=== PATIENT | male | born 1975 | race Caucasian/White ===

== ENCOUNTER 2018-06-22 08:31 | Emergency (ER) | payer OTHER, BC ==
[~2018-06-22] VITALS: Ht 182.9 cm; Wt 76.4 kg
[2018-06-22 08:33] VITALS: Ht 182.9 cm; Wt 76.4 kg
[2018-06-22] MEDS ORDERED: NORCO 7.5/325 T1 TA1 PO (09:15)
[2018-06-22 10:43] VITALS: BP 122/78
== END 2018-06-22 10:45 | disposition home or self-care (01) ==
LOC: D.ER 08:31
DX: S99.921A Unspecified injury of right foot, initial encounter (principal); V23.4XXA Motorcycle driver injured in collision with car, pick-up truck or van in traffic accident, initial encounter; Y93.89 Activity, other specified; Y92.410 Unspecified street and highway as the place of occurrence of the external cause

== ENCOUNTER 2021-02-26 06:26 | Day surgery (SDC) | payer BC ==
[~2021-02-26] VITALS: Ht 182.9 cm; Wt 79.4 kg
[~2021-02-26 06:26] MED LIST: NORCO 7.5/325 T1 TA1 PO
[2021-02-26 08:20] VITALS: BP 103/67; Ht 182.9 cm; Wt 79.4 kg
--- NOTE | 2021-02-26 09:04 | HP ---
PATIENT: SIXTO CAMPOS MEDICAL RECORD: [id number] ACCOUNT: [id number] LOCATION:[facility] : 77 ADMISSION DATE: 02/26/21 PCP: MARK MANRIQUE MD HISTORY AND PHYSICAL EXAMINATION PREOPERATIVE HISTORY AND PHYSICAL HISTORY OF PRESENT ILLNESS: Mr. Campos is 45, he has been having trouble with severe nasal obstruction refractory to medical management. He has been here for septoplasty and bilateral inferior turbinate reduction. PAST SURGICAL HISTORY: Includes right shoulder surgery for rotator cuff. PAST MEDICAL HISTORY: Otherwise, negative. CURRENT MEDICATIONS: None. ALLERGIES: No known drug allergies. PHYSICAL EXAMINATION: GENERAL: He is healthy-appearing, developmentally normal. FACE: Normal and symmetric, no lesions. EYES: Sclerae and conjunctivae are normal. NOSE: Severe septal deviation and enlarged turbinates. No masses, polyps, or drainage. ORAL CAVITY AND OROPHARYNX: Tongue protrudes in the midline. Pharynx is normal. NECK: No masses, no adenopathy. CHEST: Clear. CARDIOVASCULAR: Regular rate and rhythm, no murmur. EXTREMITIES: Normal. IMPRESSION: Obstructive nasal obstruction refractory to medical management, septal deviation, and turbinate hypertrophy. PLAN: Septoplasty and bilateral inferior turbinate reduction. TRANSINT:[id number] Voice Confirmation ID: [id number] DOCUMENT ID: [id number] MARK MANRIQUE MD at 0904 CC: [id number] DICTATION DATE: 02/24/21 0956 TUBE TELLER: 02/24/21 1027 [facility] [address] [id number]
--- NOTE | 2021-02-26 12:45 | NUR ---
LEFT HAND PIV DC'D WITH TIP INTACT. DISCHARGE INSTRUCTIONS REVIEWED WITH PATIENT AND MOTHER, DISCHARGED HOME VIA WHEELCHAIR TO PRIVATE VEHICLE WITH MOTHER
--- NOTE | 2021-03-01 08:57 | OP ---
PATIENT NAME: SIXTO KANG MEDICAL RECORD: [id number] :77 LOCATION:[facility] ADMISSION DATE: SURGEON: MARK GARCIA MD DATE OF OPERATION: 02/26/2021 PREOPERATIVE DIAGNOSES: Nasal obstruction, septal deviation, and turbinate hypertrophy. POSTOPERATIVE DIAGNOSES: Nasal obstruction, septal deviation, and turbinate hypertrophy. PROCEDURE: Septoplasty, bilateral inferior turbinate reduction. SURGEON: Mark Garcia MD ANESTHESIA: General orotracheal. BLOOD LOSS: 2 mL. SPECIMENS: None. PACKING: Roger splints bilaterally. COMPLICATIONS: None. DISPOSITION: Recovery, stable. DESCRIPTION OF PROCEDURE: He was brought to the operating room and placed in supine position, sedated and intubated by anesthesia. Head drape was applied. He was positioned for nasal surgery. Using a headlight and nasal speculum, both sides of the septum, floor of the nose, inferior turbinates were injected with a total of less than 2 mL of 1% lidocaine with 1:100,000 epinephrine. Two Afrin pledgets were placed in each side of the nose. After awaiting for decongestion, all the Afrin pledgets were removed. A right-sided Yusuf incision. Ipsilateral mucoperichondrial flap was elevated. Redundant cartilage on the right floor of the nose was resected. The mucoperichondrial flap was extended posteriorly. Bony cartilaginous junction was disarticulated. A contralateral posterior mucoperichondrial flap was elevated. Scissors were used above and below the septal spur that was bony that was removed. Relaxing incision was made in the septal cartilage. This allowed it to fall back into the midline. Septum was straight and intact. It was sutured anteriorly. The Yusuf incision was closed with interrupted 4-0 chromic. Both inferior turbinates were medialized with a freer. A Gruenwald was used to take down the inferior redundant portion of the turbinate. Suction cautery on a setting of 25 was used to stop any bleeding. They were both outfractured with a [place] elevator. Nasopharynx was suctioned. There was no bleeding. Good airway on both sides. Roger splints were placed bilaterally, sutured through the anterior membranous septum with a 2-0 Prolene on a Pedro needle. He was awakened, extubated, and transported to recovery in good condition. No complications. TRANSINT:[id number] Voice Confirmation ID: [id number] DOCUMENT ID: [id number] OPERATIVE REPORT [id number] SIXTO KANG ERIC MD at 0857 CC: [id number] DICTATION DATE: 02/26/21 105 MOBILE DISC JOCKEY: 02/26/21 1445 [facility] 02/26/21 [place] [id number] [place] [phone]
== END 2021-02-26 12:45 | disposition home or self-care (01) ==
LOC: D.OPS 06:26
PROVIDERS: ATTEND Otolaryngology
DX: J34.89 Other specified disorders of nose and nasal sinuses (principal); J34.2 Deviated nasal septum; J34.3 Hypertrophy of nasal turbinates